=== PATIENT | female | born 1955 | race Caucasian/White ===

== ENCOUNTER → 2017-07-09 | Outpatient (CLI) | payer OTHER ==
[~2017-07-09] MED LIST: AMIO200T PO; ASPI-621 PO; CEFA2PIG IVPB; CHOL5000 PO; DOCU-131 PO; ESTR0.5T PO; ESTR1TAB15 PO; FURO-92 PO; FURO40TA6 PO; GABA300C10 PO; HYDR-3237 PO; LACT1CAP35 PO; LEVO88TA4 PO; LIOT5TAB10 PO; LIOT5TAB3 PO; METO25TA35 PO; ORPH100T PO; OXYC1TAB9 PO; PANT40TA5 PO; POTA20TA14 PO; POTA20TA89 PO; QUET50TA5 PO; VENL150C PO; WARF1TAB7 PO-COUM
== END | disposition home or self-care (01) ==
LOC: CFH 15:06
PROVIDERS: ATTEND Nurse Practitioner Family
DX: M89.571 Osteolysis, right ankle and foot (principal)
CPT/HCPCS: 73721; 77063; G0202

== ENCOUNTER → 2018-11-05 | Outpatient (CLI) | payer OTHER ==
[~2018-11-05] MED LIST changes: -ASPI-621 PO; +ASPI81TA45 PO; +OXYC-432 PO; -OXYC1TAB9 PO; -WARF1TAB7 PO-COUM; +WARF1TAB74 PO-COUM
== END | disposition home or self-care (01) ==
LOC: CFH 09:00
PROVIDERS: ATTEND Nurse Practitioner Family
DX: Z12.31 Encounter for screening mammogram for malignant neoplasm of breast (principal); Z98.82 Breast implant status
CPT/HCPCS: 77063; 77067

== ENCOUNTER → 2020-01-07 | Outpatient (CLI) | payer OTHER ==
[~2020-01-07] MED LIST changes: +LIOT5TAB11 PO; -LIOT5TAB3 PO
== END | disposition home or self-care (01) ==
LOC: CFH 11:27
PROVIDERS: ATTEND Specialist
DX: M51.37 Other intervertebral disc degeneration, lumbosacral region (principal); M41.86 Other forms of scoliosis, lumbar region
CPT/HCPCS: 72110